=== PATIENT | male | born 1990 | race Caucasian/White ===

== ENCOUNTER 2019-01-27 19:20 | Emergency (ER) | payer SELFPAY ==
[~2019-01-27 19:20] MED LIST: ISOVUE-370 76%-LOCM 1 ML ONE
[2019-01-27] MEDS ORDERED: Adacel (T-DAP) 0.5 ML SYRINGE ONE (19:26)
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
[2019-01-27 19:54] LABS: Hemoglobin 14.1 g/dL (14.0-18.0); Mean Corpuscular HGB CONC 33.3 g/dL (32.0-36.0); Mean Corpuscular Hemoglobin 31.2 pg (27.0-31.0); Mean Corpuscular Volume 93.6 fL (78.0-98.0); Mean Platelet Volume 8.6 fL (7.4-10.4); Platelet Count 163 thou/uL (130-400); RBC Distribution Width 11.5 % (11.5-14.5); Red Blood Cell (RBC) Count 4.54 mill/uL (4.70-6.10); White Blood Cell (WBC) Count 24.8 thou/uL (4.8-10.8)
[2019-01-27 20:03] LABS: Actual Bicarbonate (HCO3a) 21.3 mEq/L (22-28); Analyzer IN Cardio ER; Base Excess (BEa) -10.2 mEq/L (-2.0 to +3.0); Calcium, Ionized 1.31 mmol/L (1.12-1.30); Carboxyhemoglobin (COHb) 0.3 gm% (0.0-3.0); Hemoglobin (Hb) 16.1 g/dL (14.0-18.0); Potassium - ABG Lab 3.43 mmol/L (3.70-5.30)
[2019-01-27 20:04] LABS: ALT (SGPT) 56 U/L (8-55); AST (SGOT) 73 U/L (5-34); Albumin 3.9 g/dL (3.5-5.0); Alkaline Phosphatase 71 U/L (40-150); Anion Gap 16 mmol/L (10-20); BUN (Urea Nitrogen) 10 mg/dL (8.9-20.6); Bilirubin, Total 0.3 mg/dL (0.2-1.2); Calc. Creatinine Clearance 0 mL/min (70-130); Calcium 8.5 mg/dL (7.8-10.44); Carbon Dioxide 20 mmol/L (22-29); Chloride 108 mmol/L (98-107); Estimated GFR-MDRD Greater than 90; Globulin 2.8 g/dL (2.4-3.5); Glucose 114 mg/dL (70-105); Potassium 3.5 mmol/L (3.5-5.1); Protein, Total 6.7 g/dL (6.0-8.3); Sodium 140 mmol/L (136-145)
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
[2019-01-27] MEDS ORDERED: Propofol 1,000 MG/100 ML VIAL IV ONE (20:07)
[2019-01-27] MEDS ORDERED: Albuterol Sulfate 2.5 mg/3 ml Neb ONE (20:09)
[2019-01-27] MEDS ORDERED: Fentanyl 100 MCG/2 ML VIAL ONE (20:09)
[2019-01-27 20:10] LABS: Band 7 % (5-11); Eosinophils 1 % (0-10); Lymphocytes 24 % (21-51); MDiff Complete? YES; Monocytes 3 % (0-10); Neutrophil 65 % (42-75); Platelet Morphology Comment Appears Adequate; RBC Morphology Normal
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
[2019-01-27 20:25] LABS: INR-International Normal Ratio 1.2; PTT 27.5 SEC (22.9-36.1); Prothrombin Time 15.3 SEC (12.0-14.7)
[2019-01-27] MEDS ORDERED: Vecuronium 10 MG VIAL ONE (20:35)
[2019-01-27] MEDS ORDERED: fentaNYL Citrate/PF 2,000 MCG in Sodium Chloride 0.9% 60 ML IV SCH (20:35)
[2019-01-27] MEDS ORDERED: Water For Inject, Bacteriostat 30 ML ONE (20:35)
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
[2019-01-27] MEDS ORDERED: Dexamethasone 10 MG/ML VIAL ONE (20:57)
[2019-01-27] MEDS ORDERED: Norepinephrine 8 MG/0.9% NS 250 ML ONE ×2 (21:10→21:24)
[2019-01-27] MEDS ORDERED: Vasopressin 40 UNIT, Admixture Fee 1 EACH in Sodium Chloride 0.9% 100 ML IV SCH (21:15)
[2019-01-27 21:22] LABS: O2 Tension (PaO2) 50.1 mmHg (80.0-100.0); pH, Arterial 7.09 (7.35-7.45)
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
[2019-01-27 21:23] LABS: Puncture Site L RADIAL
--- NOTE | 2019-01-27 21:54 | RAD ---
Chest one view HISTORY: Central line placement. COMPARISON: Earlier exam on the same date. FINDINGS: Tip of a left subclavian central venous catheter overlies the superior vena cava. No eviden ce of pneumothorax. Diffuse parenchymal opacity of the lungs has continued to progress. Mediastinum is midline. Nasogastric tube has been advanced slightly. Endotracheal catheter is in good position. IMPRESSION: Left subclavian central venous catheter is in good radiographic position. Continued worsening of lung opacification.
[2019-01-27] MEDS ORDERED: Calcium Chloride 1 GM/10 ML Abboject SYRINGE ONE (22:22)
[2019-01-27] MEDS ORDERED: Sodium Bicarb 50 MEQ/50 ML Abboject 8.4% SYRINGE ONE (22:22)
[2019-01-27 22:56] LABS: Actual Bicarbonate (HCO3a) 15.2 mEq/L (22-28); Analyzer IN Cardio ER; Base Excess (BEa) -13.4 mEq/L (-2.0 to +3.0); CO2 Tension 44.6 mmHg (35.0-45.0); Calcium, Ionized 1.21 mmol/L (1.12-1.30); Carboxyhemoglobin (COHb) 0.5 gm% (0.0-3.0); Hemoglobin (Hb) 17.8 g/dL (14.0-18.0)
[2019-01-27 22:57] LABS: O2 Tension (PaO2) 40.4 mmHg (80.0-100.0); pH, Arterial 7.15 (7.35-7.45)
[2019-01-27 22:58] LABS: Puncture Site L FEMORAL
[2019-01-27] MEDS ORDERED: Sodium Bicarb 50 MEQ/50 ML VIAL ONE (23:09)
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
== END 2019-01-27 23:12 | disposition short-term general hospital (02) ==
LOC: EDBD 19:22 → ERS 19:22
DX: S12.000A Unspecified displaced fracture of first cervical vertebra, initial encounter for closed fracture (principal); S02.113A Unspecified occipital condyle fracture, initial encounter for closed fracture; S22.059A Unspecified fracture of T5-T6 vertebra, initial encounter for closed fracture; S02.2XXA Fracture of nasal bones, initial encounter for closed fracture; S02.40CA Maxillary fracture, right side, initial encounter for closed fracture; T75.1XXA Unspecified effects of drowning and nonfatal submersion, initial encounter; V29.9XXA Motorcycle rider (driver) (passenger) injured in unspecified traffic accident, initial encounter
CPT/HCPCS: 36415; 36556; 51702; 70450; 70486; 71045; 71260; 72125; 74177; 80053; 80307; 82533; 82805; 83605; 85025; 85610; 85730; 86850; 86900; 86901; 90471; 90715; 93005; 94002; 94640; 96365; 96366; 96367; 96368; 96375; 96376; 99292; G0390; J0690; J1100; J2704; J3010; J3490; J7611; J7620; Q9966